=== PATIENT | female | born 1975 | race Caucasian/White ===

== ENCOUNTER 2017-01-20 15:38 | Emergency (ER) | payer OTHER ==
[~2017-01-20] VITALS: Ht 152.4 cm; Wt 85.3 kg
[~2017-01-20 15:38] MED LIST: AUG500 PO; COL100 PO; LAC PO; NORCO1 TA2 PO; PRI20 PO
[2017-01-20 18:00] VITALS: BP 119/84
== END 2017-01-20 18:00 | disposition home or self-care (01) ==
LOC: ED 15:38
DX: J20.9 Acute bronchitis, unspecified (principal)
CPT/HCPCS: Q0092

== ENCOUNTER 2017-06-22 14:15 | Emergency (ER) | payer OTHER ==
[~2017-06-22] VITALS: Ht 157.5 cm; Wt 79.4 kg
[2017-06-22 14:17] VITALS: Ht 157.5 cm; Wt 79.4 kg
[2017-06-22 15:05] VITALS: BP 136/98
[2017-06-22 15:31] LABS: BASOPHIL % 0.1 % (0-2); PLATELET COUNT 368 x10^3mcL (130-400); RED CELL DISTRIBUTION WIDTH 14.1 % (11.5-14.5)
[2017-06-22 15:52] LABS: CALCIUM 8.7 mg/dL (8.5-10.1); CARBON DIOXIDE 25.4 mmol/L (21-32); CHLORIDE SERUM 102 mmol/L (98-107); CREATININE SERUM 0.6 mg/dL (0.6-1.0); GFR1 > 60 mL/min; GLUCOSE SERUM 110 mg/dL (74-106); POTASSIUM SERUM 3.4 mmol/L (3.5-5.1); SODIUM SERUM 140 mmol/L (136-145)
[2017-06-22 15:58] LABS: ALBUMIN 3.9 g/dL (3.4-5.0); ALKALINE PHOSPHATASE 81 U/L (46-116); ALT/SGPT 42 U/L (14-59); AST/SGOT 23 U/L (15-37); BILIRUBIN TOTAL 0.25 mg/dL (0.20-1.00)
[2017-06-22 15:59] LABS: TOTAL PROTEIN, SERUM 8.3 g/dL (6.4-8.2)
== END 2017-06-22 16:36 | disposition home or self-care (01) ==
LOC: ED 14:15
PROVIDERS: Emergency Medicine
DX: R55 Syncope and collapse (principal)
CPT/HCPCS: 36415; Q0092

== ENCOUNTER 2017-06-25 15:28 | Emergency (ER) | payer OTHER ==
[~2017-06-25] VITALS: Ht 162.6 cm; Wt 72.6 kg
[2017-06-25 15:32] VITALS: Ht 162.6 cm; Wt 72.6 kg
[2017-06-25 20:16] VITALS: BP 133/93
== END 2017-06-25 20:16 | disposition home or self-care (01) ==
LOC: ED 15:28
DX: B69.0 Cysticercosis of central nervous system (principal)

== ENCOUNTER 2017-07-04 20:48 | Emergency (ER) | payer OTHER ==
[~2017-07-04] VITALS: Ht 157.5 cm; Wt 82.5 kg
[2017-07-04 21:35] VITALS: Ht 157.5 cm; Wt 82.5 kg
[2017-07-05 01:09] VITALS: BP 123/77
== END 2017-07-05 01:09 | disposition home or self-care (01) ==
LOC: ED 20:48
DX: S33.5XXA Sprain of ligaments of lumbar spine, initial encounter (principal); X58.XXXA Exposure to other specified factors, initial encounter; Y93.89 Activity, other specified; Y92.89 Other specified places as the place of occurrence of the external cause; Y99.8 Other external cause status
CPT/HCPCS: J1885

== ENCOUNTER 2017-07-24 12:23 | Emergency (ER) | payer OTHER ==
[~2017-07-24] VITALS: Ht 162.6 cm; Wt 90.7 kg
[2017-07-24 12:30] VITALS: Ht 162.6 cm; Wt 90.7 kg
[2017-07-24 12:57] LABS: BASOPHIL % 0.4 % (0-2); PLATELET COUNT 371 x10^3mcL (130-400); RED CELL DISTRIBUTION WIDTH 13.8 % (11.5-14.5)
[2017-07-24 13:16] LABS: CALCIUM 8.9 mg/dL (8.5-10.1); CARBON DIOXIDE 27.6 mmol/L (21-32); CHLORIDE SERUM 102 mmol/L (98-107); CREATININE SERUM 0.6 mg/dL (0.6-1.0); GFR1 > 60 mL/min; GLUCOSE SERUM 92 mg/dL (74-106); POTASSIUM SERUM 4.1 mmol/L (3.5-5.1); SODIUM SERUM 134 mmol/L (136-145)
[2017-07-24 13:21] LABS: ALBUMIN 3.9 g/dL (3.4-5.0); ALKALINE PHOSPHATASE 86 U/L (46-116); ALT/SGPT 30 U/L (14-59); AST/SGOT 19 U/L (15-37); BILIRUBIN TOTAL 0.2 mg/dL (0.20-1.00)
[2017-07-24 13:50] VITALS: BP 118/75
== END 2017-07-24 13:55 | disposition home or self-care (01) ==
LOC: ED 12:23 → EDSEX 12:23 → ED 12:23
PROVIDERS: Emergency Medicine
DX: F41.1 Generalized anxiety disorder (principal); Z86.59 Personal history of other mental and behavioral disorders
CPT/HCPCS: 36415; J2060; Q0092

== ENCOUNTER 2017-08-09 13:32 | Emergency (ER) | payer OTHER ==
[~2017-08-09] VITALS: Ht 162.6 cm; Wt 81.2 kg
[2017-08-09 13:46] VITALS: Ht 162.6 cm; Wt 81.2 kg
[2017-08-09 15:09] VITALS: BP 128/71
== END 2017-08-09 15:10 | disposition home or self-care (01) ==
LOC: ED 13:32 → EDBD 13:32 → ED 13:32
DX: F41.9 Anxiety disorder, unspecified (principal)

== ENCOUNTER 2017-08-25 08:28 | Emergency (ER) | payer OTHER ==
[~2017-08-25] VITALS: Ht 160 cm; Wt 81.2 kg
[2017-08-25 08:37] VITALS: Ht 160 cm; Wt 81.2 kg
[2017-08-25 09:13] LABS: microscopic required? YES; urine erythrocyte 2+ (NEGATIVE)
[2017-08-25 09:19] LABS: BASOPHIL % 0.6 % (0-2); PLATELET COUNT 324 x10^3mcL (130-400); RED CELL DISTRIBUTION WIDTH 13.6 % (11.5-14.5)
[2017-08-25 10:05] LABS: CARBON DIOXIDE 28.3 mmol/L (21-32); CHLORIDE SERUM 104 mmol/L (98-107); CREATININE SERUM 0.7 mg/dL (0.6-1.0); GFR1 > 60 mL/min; GLUCOSE SERUM 147 mg/dL (74-106); SODIUM SERUM 137 mmol/L (136-145)
[2017-08-25 10:14] LABS: TOTAL PROTEIN, SERUM 7.4 g/dL (6.4-8.2)
[2017-08-25 10:15] LABS: ALBUMIN 3.5 g/dL (3.4-5.0); ALKALINE PHOSPHATASE 95 U/L (46-116); ALT/SGPT 27 U/L (14-59); AST/SGOT 18 U/L (15-37); BILIRUBIN TOTAL 0.4 mg/dL (0.20-1.00); CALCIUM 8.5 mg/dL (8.5-10.1)
[2017-08-25 10:16] LABS: AMYLASE 55 U/L (25-115); CHOLESTEROL 194 mg/dL (<200); HDL CHOLESTEROL 51 mg/dL (40-60); LIPASE 75 IU/L (73-393)
[2017-08-25 11:18] LABS: AMPHETAMINE QUAL UR NONE DETECTED (NEG <=1000)
[2017-08-25 13:00] VITALS: BP 106/65
== END 2017-08-25 13:00 | disposition home or self-care (01) ==
LOC: ED 08:28
PROVIDERS: Emergency Medicine
DX: F41.8 Other specified anxiety disorders (principal); I10 Essential (primary) hypertension; Z90.49 Acquired absence of other specified parts of digestive tract; Z98.51 Tubal ligation status
CPT/HCPCS: 83880; J1630; J2060; Q0092

== ENCOUNTER 2018-02-09 13:19 | Emergency (ER) | payer OTHER ==
[~2018-02-09] VITALS: Ht 157.5 cm; Wt 81.2 kg
[2018-02-09 13:27] VITALS: Ht 157.5 cm; Wt 81.2 kg
[2018-02-09 14:37] LABS: microscopic required? YES; urine erythrocyte 2+ (NEGATIVE)
[2018-02-09 15:14] LABS: BASOPHIL % 0.5 % (0-2); PLATELET COUNT 295 x10^3mcL (130-400); RED CELL DISTRIBUTION WIDTH 13.7 % (11.5-14.5)
[2018-02-09 15:19] LABS: CALCIUM 8.4 mg/dL (8.5-10.1); CARBON DIOXIDE 23.1 mmol/L (21-32); CHLORIDE SERUM 105 mmol/L (98-107); GFR1 > 60 mL/min; GLUCOSE SERUM 98 mg/dL (74-106); POTASSIUM SERUM 3.9 mmol/L (3.5-5.1); SODIUM SERUM 139 mmol/L (136-145)
[2018-02-09 15:20] LABS: LIPASE 117 IU/L (73-393)
[2018-02-09 16:15] VITALS: BP 119/72
== END 2018-02-09 16:15 | disposition home or self-care (01) ==
LOC: ED 13:19
PROVIDERS: Emergency Medicine
DX: S29.8XXA Other specified injuries of thorax, initial encounter (principal); S40.012A Contusion of left shoulder, initial encounter; N83.209 Unspecified ovarian cyst, unspecified side; W01.0XXA Fall on same level from slipping, tripping and stumbling without subsequent striking against object, initial encounter; Y93.E1 Activity, personal bathing and showering; Y92.091 Bathroom in other non-institutional residence as the place of occurrence of the external cause; Y99.8 Other external cause status
CPT/HCPCS: 36415; J7030; Q9967

== ENCOUNTER 2018-04-05 18:10 | Emergency (ER) | payer OTHER ==
[~2018-04-05] VITALS: Ht 165.1 cm; Wt 68.0 kg
[2018-04-05 18:16] VITALS: Ht 165.1 cm; Wt 68.0 kg
[2018-04-05 21:59] VITALS: BP 125/70
== END 2018-04-05 21:59 | disposition home or self-care (01) ==
LOC: ED 18:10
DX: G44.209 Tension-type headache, unspecified, not intractable (principal); F41.1 Generalized anxiety disorder
CPT/HCPCS: J1885; J7030

== ENCOUNTER 2018-04-07 08:10 | Emergency (ER) | payer OTHER ==
[~2018-04-07] VITALS: Ht 165.1 cm; Wt 79.4 kg
[2018-04-07 08:29] VITALS: Ht 165.1 cm; Wt 79.4 kg
[2018-04-07 09:27] VITALS: BP 115/77
== END 2018-04-07 09:27 | disposition home or self-care (01) ==
LOC: ED 08:10
DX: F41.9 Anxiety disorder, unspecified (principal); N83.209 Unspecified ovarian cyst, unspecified side; Z90.49 Acquired absence of other specified parts of digestive tract
CPT/HCPCS: J2060

== ENCOUNTER 2018-04-17 20:58 | Emergency (ER) | payer OTHER ==
[~2018-04-17] VITALS: Ht 165.1 cm; Wt 90.7 kg
[2018-04-17 21:00] VITALS: BP 135/82; Ht 165.1 cm; Wt 90.7 kg
[2018-04-17 22:09] LABS: UA SPECIFIC GRAVITY >=1.030 (1.005-1.035); microscopic required? YES; urine erythrocyte 3+ (NEGATIVE)
[2018-04-17 22:10] LABS: BASOPHIL % 0.6 % (0-2); PLATELET COUNT 288 x10^3mcL (130-400); RED CELL DISTRIBUTION WIDTH 13.4 % (11.5-14.5)
[2018-04-17 22:17] LABS: CALCIUM 9.1 mg/dL (8.5-10.1); CARBON DIOXIDE 28.8 mmol/L (21-32); CHLORIDE SERUM 103 mmol/L (98-107); CREATININE SERUM 0.7 mg/dL (0.6-1.0); GFR1 > 60 mL/min; GLUCOSE SERUM 107 mg/dL (74-106); POTASSIUM SERUM 3.8 mmol/L (3.5-5.1); SODIUM SERUM 139 mmol/L (136-145)
[2018-04-17 22:19] LABS: AMPHETAMINE QUAL UR NONE DETECTED (See below)
[2018-04-17 22:25] LABS: ALBUMIN 3.8 g/dL (3.4-5.0); ALKALINE PHOSPHATASE 70 U/L (46-116); ALT/SGPT 29 U/L (14-59); AST/SGOT 19 U/L (15-37); BILIRUBIN TOTAL 0.2 mg/dL (0.20-1.00); TOTAL PROTEIN, SERUM 7.6 g/dL (6.4-8.2)
== END 2018-04-17 21:55 | disposition left against medical advice (07) ==
LOC: ED 20:58
PROVIDERS: Emergency Medicine
DX: F41.1 Generalized anxiety disorder (principal)
CPT/HCPCS: 36415; G0480

== ENCOUNTER 2019-01-20 15:08 | Emergency (ER) | payer OTHER ==
[~2019-01-20] VITALS: Ht 154.9 cm; Wt 82.1 kg
[2019-01-20 15:11] VITALS: Ht 154.9 cm; Wt 82.1 kg
[2019-01-20 16:36] VITALS: BP 126/77
== END 2019-01-20 16:36 | disposition home or self-care (01) ==
LOC: ED 15:08
DX: M79.645 Pain in left finger(s) (principal); F41.9 Anxiety disorder, unspecified

== ENCOUNTER 2019-01-21 12:35 | Emergency (ER) | payer OTHER ==
[~2019-01-21] VITALS: Ht 157.5 cm; Wt 81.2 kg
[2019-01-21 12:40] VITALS: Ht 157.5 cm; Wt 81.2 kg
[2019-01-21 13:20] VITALS: BP 110/70
== END 2019-01-21 13:20 | disposition home or self-care (01) ==
LOC: ED 12:35
DX: M79.645 Pain in left finger(s) (principal); F41.9 Anxiety disorder, unspecified
CPT/HCPCS: A4570